=== PATIENT | female | born 1985 | race Caucasian/White ===

== ENCOUNTER 2017-02-20 20:44 | Emergency (ER) | payer MEDICAID ==
[~2017-02-20] VITALS: Ht 165.1 cm; Wt 74.0 kg
[~2017-02-20 20:44] MED LIST: CEPH-443 PO; IBUP800T25 PO; PREN1TAB49 PO; TRAM50TA2 PO
[2017-02-20 20:59] VITALS: Ht 165.1 cm; Wt 74.0 kg
[2017-02-20] MEDS ORDERED: ERYT1OIN6 LEFT EYE (21:29)
[2017-02-20] MEDS ORDERED: IBUP-1542 PO (21:29)
--- NOTE | 2017-02-20 21:42 | ERD ---
ER Documentation Chief Complaint Date/Time DATE: 02/20/17 TIME: 21:39 Chief Complaint left eye pain, itching since this am +swelling and redness HPI 31-year-old female presents here in emergency department for complaints of left lower eyelid itching pain and swelling that started this morning. Patient's complaining of pain sharp pains 6/10 scale is upon touching the area. Patient denies any fever or chills. Patient denies any discharge coming from the area. Patient denies any vision changes. Patient denies any trauma in the eye. ROS All systems reviewed and are negative except as per history of present illness. Medications Home Meds Active Scripts Ibuprofen* (Motrin*) 600 Mg Tab, 600 MG PO Q6H Y for PAIN AND OR ELEVATED TEMP, #30 TAB Prov:KAITLYNN HALL NP 02/20/17 Erythromycin (Erythromycin Opth) 3.5 Gm Oint..gm., 1 APPLIC LEFT EYE QID, #1 Prov:KAITLYNN HALL NP 02/20/17 Ibuprofen* (Motrin*) 800 Mg Tab, 800 MG PO Q6, #30 TAB Prov:MIGUE SU PA-C 05/26/16 Tramadol HCl (Tramadol HCl) 50 Mg Tablet, 50 MG PO Q4 Y for PAIN, #20 TAB Prov:MIGUE SU PA-C 05/26/16 Cephalexin* (Keflex*) 500 Mg Capsule, 500 MG PO QID for 7 Days, CAP Prov:MIGUE SU PA-C 05/26/16 Reported Medications Vits W-Ca,Fe,Fa(<1MG) () 1 Tab Tablet, 1 TAB PO DAILY 06/01/11 Allergies Allergies: Coded Allergies: No Known Drug Allergy (Verified Allergy, Unknown, 12/16/08) PMhx/Soc Medical and Surgical Hx: pt denies Medical Hx History of Surgery: Yes (c-sec x 3) Anesthesia Reaction: No Hx Neurological Disorder: No Hx Respiratory Disorders: No Hx Cardiac Disorders: No Hx Psychiatric Problems: No Hx Miscellaneous Medical Probl: No Hx Alcohol Use: No Hx Substance Use: No Hx Tobacco Use: No FmHx Family History: No coronary disease, No diabetes, No other Physical Exam Vitals Vital Signs Date Time Temp Pulse Resp B/P Pulse Ox O2 Delivery O2 Flow Rate FiO2 02/20/17 20:59 98.2 91 18 116/75 99 Physical Exam GENERAL: The patient is well developed and appropriate for usual state of health, in no apparent distress. HEENT: Atraumatic. bilateral eyes are PERRL EOM intact. Left lower eyelid noted to be erythematous and swollen, indurated, tender on palpation, no fluctuance noted. Ears: Normal tympanic membrane, no erythema or bulging. No ear canal swelling. No ear discharge. Nose: normal nasal turbinates, no erythema or swelling. Normal nasal discharge. Throat: oropharynx clear. No tonsillar swelling or tonsillar exudates. No lymphadenopathy. CHEST: Clear to auscultation bilaterally. There are no rales, wheezes or rhonchi. HEART: Regular rate and rhythm. No murmurs, clicks, rubs or gallops. No S3 or S4. ABDOMEN: Soft, nontender and nondistended. Good bowel sounds. No rebound or guarding. No gross peritonitis. No gross organomegaly or masses. No Carlton sign or McBurney point tenderness. BACK: No midline or flank tenderness. EXTREMITIES: Equal pulses bilaterally. There is no peripheral clubbing, cyanosis or edema. No focal swelling or erythema. Full range of motion. Grossly neurovascularly intact. NEURO: Alert and oriented. Cranial nerves 2-12 intact. Motor strength in all 4 extremities with 5/5 strength. Sensation grossly intact. Normal speech and gait. SKIN: There is no apparent rash or petechia. The skin is warm and dry. HEMATOLOGIC AND LYMPHATIC: There is no evidence of excessive bruising or lymphedema. No gross cervical, axillary, or inguinal lymphadenopathy. Procedures/MDM Medical decision making: Patient symptoms most likely is consistent with left lower eyelid stye. No symptoms of orbital, periorbital cellulitis. No symptoms of any sepsis at this time. No symptoms of any other eye emergencies at this time, no vision changes, no trauma on affected area, no foreign body sensation in the eye. Patient was given for erythromycin, ibuprofen, Zofran stop light warm compress on affected area, follow primary care doctor in 2 days for reevaluation of symptoms. Patient is advised to return to emergency department for any worsening symptoms. Disposition: Home. Stable. Departure Diagnosis: Primary Impression: Stye Laterality: left Eyelid: lower Qualified Code: H00.015 - Hordeolum externum of left lower eyelid Condition: Stable Patient Instructions: KAITLYNN Jaimes NP Feb 20, 2017 21:42
== END 2017-02-20 21:47 | disposition home or self-care (01) ==
LOC: FTE 20:44
DX: H00.015 Hordeolum externum left lower eyelid (principal)
CPT/HCPCS: 99283

== ENCOUNTER 2018-02-17 02:00 | Emergency (ER) | END 2018-02-17 05:38 | disposition home or self-care (01) ==

== ENCOUNTER 2018-02-19 07:04 | Emergency (ER) | END 2018-02-19 07:46 | disposition home or self-care (01) ==

== ENCOUNTER 2018-02-21 07:24 | Emergency (ER) | END 2018-02-21 08:23 | disposition home or self-care (01) ==

== ENCOUNTER 2019-05-16 22:43 | Emergency (ER) | payer MEDICAID ==
[~2019-05-16] VITALS: Ht 154.9 cm; Wt 77.6 kg
[~2019-05-16 22:43] MED LIST changes: +ERYT1OIN6 LEFT EYE; +HC30CR25 TOP; +HYDR-4011 PO; +IBUP-1542 PO; -IBUP800T25 PO; +IBUP800T48 PO; +SULF1TAB31 PO
[2019-05-16 22:48] VITALS: BP 112/68; PULSE 69; RESP 20; Ht 154.9 cm; Wt 77.6 kg
== END 2019-05-17 00:17 | disposition home or self-care (01) ==
LOC: FTE 22:43
DX: L30.9 Dermatitis, unspecified (principal)
CPT/HCPCS: 99282